=== PATIENT | female | born 1990 | race American Indian/Alaskan Native ===

== ENCOUNTER 2021-10-19 06:00 | Emergency (ER) | payer SELFPAY ==
[2021-10-19 06:08] VITALS: BP 126/72
== END 2021-10-19 11:33 ==
LOC: ED 06:00
DX: R10.13 Epigastric pain (principal); Z53.21 Procedure and treatment not carried out due to patient leaving prior to being seen by health care provider

== ENCOUNTER 2021-11-13 21:41 | Emergency (ER) | payer SELFPAY ==
--- NOTE | 2021-11-13 23:50 | Emergency Department Report ---
ED General Adult HPI - General Chief complaint: Dyspnea/Respdistress Stated complaint: MANJULA PUI?: No Time Seen by Provider: 11/13/21 23:32 Source: patient, EMS Mode of arrival: Stretcher Limitations: No Limitations - History of Present Illness Initial comments: This is a 31-year-old female who is state that she is 13 weeks and was recently diagnosed with pulmonary embolism on October 19 [facility] came in today with concerns of mild chest discomfort and also feeling short of breath. Patient states the chest discomfort is more of a sharp sensation localized does not radiate it is more of a constant pain. She denies coughing. Patient denies any other symptoms denies fever chills night sweats dizziness blurred vision lightheadedness headache tinnitus ear pain runny nose sore throat loss of taste loss of smell palpitation cough abdominal pain nausea vomiting diarrhea constipation joint pain muscle pain new rash and heat or cold intolerance. - Related Data Previous Rx's Medication Instructions Recorded Last Taken Type Azithromycin 250 mg PO DAILY 4 Days #4 11/14/21 Unknown Rx Allergies Allergy/AdvReac Type Severity Reaction Status Date / Time No Known Allergies Allergy Verified 10/19/21 06:09 ED Review of Systems ROS: Stated complaint: MANJULA Other details as noted in HPI Comment: All other systems reviewed and negative ED Past Medical Hx - Past Medical History Previous Medical History?: No - Medications Home Medications: Home Medications Medication Instructions Recorded Confirmed Last Taken Type Azithromycin 250 mg PO DAILY 4 Days #4 11/14/21 Unknown Rx ED Physical Exam - General Limitations: No Limitations General appearance: alert, in no apparent distress - Head Head exam: Present: atraumatic, normocephalic, normal inspection - Eye Eye exam: Present: normal appearance, PERRL, EOMI Pupils: Present: normal accommodation - ENT ENT exam: Present: normal exam - Neck Neck exam: Present: normal inspection, full ROM - Respiratory Respiratory exam: Present: normal lung sounds bilaterally - Cardiovascular Cardiovascular Exam: Present: regular rate, normal rhythm, normal heart sounds - GI/Abdominal GI/Abdominal exam: Present: soft - Extremities Exam Extremities exam: Present: normal inspection, full ROM, normal capillary refill - Back Exam Back exam: Present: normal inspection, full ROM - Neurological Exam Neurological exam: Present: alert, oriented X3, CN II-XII intact - Psychiatric Psychiatric exam: Present: normal affect, normal mood - Skin Skin exam: Present: warm, normal color ED Course Vital Signs 11/13/21 11/13/21 11/13/21 21:53 21:57 22:00 Temperature 98.9 F Pulse Rate 79 70 Respiratory 16 10 L Rate Blood Pressure Blood Pressure 130/90 [Right] O2 Sat by Pulse 98 100 100 Oximetry 11/13/21 11/13/21 11/13/21 22:16 22:30 22:46 Temperature Pulse Rate 72 67 68 Respiratory 15 22 22 Rate Blood Pressure Blood Pressure [Right] O2 Sat by Pulse 99 100 100 Oximetry 11/13/21 11/13/21 11/13/21 23:00 23:16 23:30 Temperature Pulse Rate 67 79 68 Respiratory 13 15 13 Rate Blood Pressure Blood Pressure [Right] O2 Sat by Pulse 99 98 99 Oximetry 11/13/21 11/14/21 11/14/21 23:46 00:00 00:16 Temperature Pulse Rate 80 67 71 Respiratory 14 13 12 Rate Blood Pressure Blood Pressure [Right] O2 Sat by Pulse 99 100 100 Oximetry 11/14/21 11/14/21 11/14/21 00:30 00:46 01:00 Temperature Pulse Rate 80 75 68 Respiratory 12 9 L 14 Rate Blood Pressure Blood Pressure [Right] O2 Sat by Pulse 100 100 100 Oximetry 11/14/21 11/14/21 11/14/21 01:22 01:30 01:40 Temperature Pulse Rate 75 73 Respiratory 13 22 Rate Blood Pressure 148/114 102/57 Blood Pressure [Right] O2 Sat by Pulse 99 99 98 Oximetry - Reevaluation(s) Reevaluation #1: 11/14/21 01:45 CXR REVEAL FAINT RIGHT LOWER LUNG AIRWAY DISEASE. PATIENT SHOWED ME HER CTPA RESULT WHICH REVEALED LEFT PE; THEREFORE, I WILL TREAT IT POSSIBLE PNA. PATIENT INFORMED TO MAKE A FOLLOW UP APPOINTMENT WITH PCP TO BE SEEN WITHIN 7 DAYS WELL. 11/14/21 01:47 ED Medical Decision Making - Lab Data Result diagrams: 11/14/21 00:27 11/14/21 00:27 Critical care attestation.: If time is entered above; I have spent that time in minutes in the direct care of this critically ill patient, excluding procedure time. ED Disposition Clinical Impression: PNA (pneumonia), Pleuritic chest pain Disposition: 01 HOME / SELF CARE / HOMELESS Is pt being admited?: No Does the pt Need Aspirin: No Condition: Stable Instructions: Bacterial Pneumonia (ED), Nonspecific Chest Pain, Adult Additional Instructions: MAKE A FOLLOW UP APPOINTMENT WITH YOUR PRIMARY CARE PROVIDER TO BE SEEN WITHIN 7 DAYS FOR FURTHER OUTPATIENT EVALUATION. Prescriptions: Azithromycin 250 mg PO DAILY 4 Days #4 Referrals: PRIMARY CARE, [Primary Care Provider] - 3-5 Days Time of Disposition: 01:49
--- NOTE | 2021-11-14 00:11 | XRay Report ---
Chest single view INDICATION: Dyspnea Chest pain IMPRESSION: Faint airspace disease within the right lower lung. The left lung is clear. The heart siz e is normal. Signer Name: Vince Fox MD Signed: 11/14/2021 12:07 AM Workstation Name: [email or web address]
[2021-11-14 00:52] LABS: Hematocrit 32.5 % (30.3-42.9); Hemoglobin 10.6 gm/dl (10.1-14.3); Mean Corpuscular HGB Conc 33 % (30-34); Mean Corpuscular Volume 80 fl (79-97); Platelet Count 238 K/mm3 (140-440); Red Blood Count 4.08 M/mm3 (3.65-5.03); Red Cell Distribution Width 15.7 % (13.2-15.2)
[2021-11-14 01:36] LABS: Alanine Aminotransferase 27 units/L (7-56); Albumin 3.5 g/dL (3.9-5); Blood Urea Nitrogen 8 mg/dL (7-17); Calcium 9.8 mg/dL (8.4-10.2); Hemolysis Index 8
[2021-11-14 01:37] LABS: BUN/Creatinine Ratio 11
[2021-11-14] MEDS ORDERED: AZITHROMYCIN 250 MG TAB PO ONE (01:44)
[2021-11-14 01:58] VITALS: BP 116/67
--- NOTE | 2021-11-14 13:20 | Electrocardiograph Report ---
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
== END 2021-11-14 01:59 | disposition home or self-care (01) ==
LOC: ED 21:41
DX: O26.891 Other specified pregnancy related conditions, first trimester (principal); R07.9 Chest pain, unspecified; J18.9 Pneumonia, unspecified organism; Z3A.13 13 weeks gestation of pregnancy
CPT/HCPCS: 36415; 71045; 80053; 83880; 84484; 85027; 93005; 99284